=== PATIENT | male | born 1980 | race Two or more races ===

== ENCOUNTER 2016-07-31 11:19 | Emergency (ER) | payer MEDICAID ==
[~2016-07-31] VITALS: Ht 172.7 cm; Wt 79.4 kg
[~2016-07-31 11:19] MED LIST: AMLO10TA2 PO; ASPI81CH49 PO; BENA20TA4 PO; CLON0.1T PO; DIPH50TA9 PO; ENA10T PO; METO25TA62 PO; PRAVASTATIN PO
[2016-07-31] MEDS ORDERED: ONDANSETRON HCL 4 MG/2 ML VIAL IV ONE (13:15)
[2016-07-31] MEDS ORDERED: MORPHINE SULFATE 4 MG/ML SYRG IV ONE (13:15)
[2016-07-31] MEDS ORDERED: LABETALOL HCL 5 MG/ML 4ML SYRINGE IV ONE (14:30)
[2016-07-31] MEDS ORDERED: METO-169 (14:38)
[2016-07-31] MEDS ORDERED: HYDR-4072 (14:38)
[2016-07-31] MEDS ORDERED: ASPI81TA13 (14:38)
[2016-07-31] MEDS ORDERED: GABA300C8 (14:38)
[2016-07-31] MEDS ORDERED: PROMETHAZINE HCL 25 MG/ML 1ML IV ONE (15:30)
[2016-07-31] MEDS ORDERED: HYDROmorphone HCL 2 MG/ML VL IV ONE (15:30)
[2016-07-31 15:34] LABS: Basophils # (auto) 0.1 uL; Basophils % (auto) 0.4 % (0.0-2.0); Eosinophils # (auto) 0 uL; Eosinophils % (auto) 0.2 % (0.0-7.0); Hematocrit 42.9 % (41.0-53.0); Hemoglobin 14.4 g/dL (13.5-17.5); Lymphocytes % (auto) 14.3 % (10.0-50.0); Mean Corpuscular Hemoglobin 30.3 pg (28.0-32.0); Mean Corpuscular Hgb Conc. 33.6 g/dL (32.0-36.0); Mean Corpuscular Volume 90.2 fL (80.0-100.0); Mean Platelet Volume 8.6 fL (7.4-10.4); Monocytes # (auto) 0.8 uL; Monocytes % (auto) 5.7 % (0.0-12.0); Neutrophils # (auto) 11.1 uL; Neutrophils % (auto) 79.4 % (37.0-80.0); Platelet Count (auto) 274 10^3/uL (140-450); Red Cell Distribution Width 14.4 % (11.6-16.0)
[2016-07-31 16:12] LABS: Albumin 3.7 g/dL (3.4-5.0); BUN/Creatinine Ratio 13.7; Bilirubin, Total 0.7 mg/dL (0.2-1.0); Calcium 8.6 mg/dL (8.5-10.1); Potassium 3.7 mmol/L (3.5-5.1); Total Protein 6.9 g/dL (6.4-8.2)
[2016-07-31] MEDS ORDERED: IOHEXOL 350 MG/ML 100ML IJ ONE ×2 (17:22→17:52)
[2016-07-31 19:43] VITALS: BP 138/98
== END 2016-07-31 20:07 | disposition left against medical advice (07) ==
LOC: EDUNIT# 11:19 → ER 11:25
DX: S70.12XA Contusion of left thigh, initial encounter (principal); G62.9 Polyneuropathy, unspecified; Z53.29 Procedure and treatment not carried out because of patient's decision for other reasons; I10 Essential (primary) hypertension; F17.210 Nicotine dependence, cigarettes, uncomplicated; Y08.89XA Assault by other specified means, initial encounter; Y93.89 Activity, other specified; Y99.8 Other external cause status; Y92.89 Other specified places as the place of occurrence of the external cause
CPT/HCPCS: 36415; 72131; 73552; 73590; 73610; 73706; 74177; 80053; 82550; 85025; 85049; 96374; 96375; 99285; J1170; J2270; J2405; J2550; J3490; Q9967; 73600

== ENCOUNTER 2019-05-15 06:55 | Emergency (ER) | payer MEDICAID ==
[~2019-05-15] VITALS: Ht 172.7 cm; Wt 77.1 kg
[~2019-05-15 06:55] MED LIST changes: +AMLO10TA13 PO; -AMLO10TA2 PO; +ASPI1TAB19; +BENA20TA14 PO; -BENA20TA4 PO; -ENA10T PO; +ENAL10TA PO; +GABA300C10; +HYDR-4072; +METO-169
[2019-05-15 07:08] VITALS: BP 183/109
[2019-05-15] MEDS ORDERED: cloNIDine HCL 0.1 MG TAB PO ONE (07:30)
[2019-05-15] MEDS ORDERED: KETOROLAC TROMETH 60MG/2ML VIAL IM ONE (07:30)
== END 2019-05-15 07:59 | disposition home or self-care (01) ==
LOC: EDBD 06:55 → ER 06:55
DX: S39.012A Strain of muscle, fascia and tendon of lower back, initial encounter (principal); I16.0 Hypertensive urgency; I10 Essential (primary) hypertension; F17.210 Nicotine dependence, cigarettes, uncomplicated; F12.10 Cannabis abuse, uncomplicated; X58.XXXA Exposure to other specified factors, initial encounter; Y93.01 Activity, walking, marching and hiking; Y92.488 Other paved roadways as the place of occurrence of the external cause; Y99.8 Other external cause status
CPT/HCPCS: 96372; 99283; J1885